=== PATIENT | male | born 1950 | race African-American/Black ===

== ENCOUNTER 2017-12-16 13:24 | Emergency (ER) | payer MEDICARE ==
[2017-12-16 15:04] VITALS: BP 185/130
--- NOTE | 2017-12-16 15:52 | UC ---
Skin Complaint HPI - HPI Summary HPI Summary: Patient removed a tick from his right lower abdomen last night. States that today he has developed a large area of redness around the area. He reports he was digging at it quite a bit trying to get a retained piece of tick out of his skin. Thinks there still might be a small bit remaining. No fever, headache, body aches. Unsure how long tick was attached. Patient was found to be profoundly hypertensive while in the UC. States he does not take any blood pressure medications as they did not work in the past. No PCP presently. Denies chest pain, shortness of breath, headache, visual disturbances. States his blood pressure usually runs in the 200s systolic. - History of Current Complaint Chief Complaint: UCGeneralIllness Time Seen by Provider: 12/16/17 15:08 Stated Complaint: TICK BITE Onset/Duration: Gradual Onset, Lasting Days, Still Present Timing: Constant Onset Severity: Mild Current Severity: Mild Pain Intensity: 0 Pain Scale Used: 0-10 Numeric Location: Discrete - RIGHT LOWER ABDOMEN Character: Redness Aggravating Factor(s): Nothing Alleviating Factor(s): Nothing Associated Signs & Symptoms: Positive: Rash - Allergy/Home Medications Allergies/Adverse Reactions: Allergies Allergy/AdvReac Type Severity Reaction Status Date / Time No Known Allergies Allergy Verified 12/16/17 14:06 Review of Systems Constitutional: Negative Skin: Rash Respiratory: Negative Cardiovascular: Negative Gastrointestinal: Negative Neurological: Negative All Other Systems Reviewed And Are Negative: Yes PMH/Surg Hx/FS Hx/Imm Hx Cardiovascular History: Hypertension - Surgical History Surgical History: None - Family History Known Family History: Positive: Hypertension - Social History Alcohol Use: Occasionally Substance Use Type: Marijuana Substance Use Comment - Amount & Last Used: "5-6 joints a day" Smoking Status (MU): Former Smoker Physical Exam Triage Information Reviewed: Yes Appearance: Well-Appearing, No Pain Distress, Well-Nourished Vital Signs: Initial Vital Signs Temp 99.1 F 12/16/17 14:06 Pulse 59 12/16/17 14:06 Resp 18 12/16/17 14:06 BP 0/0 12/16/17 14:06 Pulse Ox 98 12/16/17 14:06 Vital Signs Reviewed: Yes Eyes: Positive: Conjunctiva Clear ENT: Positive: Hearing grossly normal Neck: Positive: Supple Respiratory Exam: Normal Cardiovascular Exam: Normal Abdomen Description: Positive: Soft Musculoskeletal: Positive: No Edema Neurological: Positive: Alert Psychological: Positive: Age Appropriate Behavior Skin: Positive: Other - 9CM X 5CM AREA OF ERYTHEMA SURROUNDING SCABBED OVER TICK BITE RIGHT LOWER ABDOMEN. PINPOINT SIZED RETAINED TICK PART IN CENTER OF SCAB Course/Dx - Course Course Of Treatment: PT OFFERED TRANSPORT TO THE ED BY AMBULANCE FOR FURTHER EVAL AND TX OF HIS BP BUT DECLINES. ADVISED THAT BY NOT TRAVELING IN A MONITORED SETTING HE COULD BE RISKING WORSENING OF HIS CONDITION THAT COULD POSE A THREAT TO HIS LIFE, HEALTH AND MEDICAL SAFETY. HE VERBALIZES UNDERSTANDING AND CONTINUES TO DECLINE AMBULANCE TRANSFER. - Diagnoses Provider Diagnoses: 1. TICK BITE/CELLULITIS. 2. HYPERTENSIVE CRISIS Discharge - Sign-Out/Discharge Documenting (check all that apply): Patient Departure All imaging exams completed and their final reports reviewed: No Studies - Discharge Plan Condition: Stable Disposition: TRANS HIGHER LVL OF CARE FAC Prescriptions: Doxycycline Monohydrate 1 cap PO BID #[id number] Patient Education Materials: Cellulitis (ED), Tick Bite (ED), Hypertensive Crisis (ED) Referrals: No Primary Care Phys,NOPCP [Primary Care Provider] - Additional Instructions: THERE IS NO INDICATION TO REMOVE THE SMALL PIECE OF RETAINED TICK IN YOUR SKIN. YOUR BODY WILL PUSH THIS OUT ON ITS OWN THE WOUND HEALS. YOU APPEAR TO HAVE DEVELOPED A CELLULITIC INFECTION OF THE SKIN SURROUNDING THE TICK BITE. WE 'LL TREAT WITH DOXYCYCLINE TWICE DAILY FOR 2 WEEKS. THIS WILL ALSO COVER FOR LYME DISEASE. YOUR BP TODAY IS DANGEROUSLY ELEVATED (185/130). GO DIRECTLY TO THE [facility] ED FROM HERE FOR FURTHER EVALUATION. YOU HAVE DECLINED TRANSFER TO THE ED BY AMBULANCE. BE ADVISED THAT BY NOT TRAVELING IN A MONITORED SETTING YOU COULD BE RISKING WORSENING OF YOUR CONDITION THAT COULD POSE A THREAT TO YOUR LIFE, HEALTH AND MEDICAL SAFETY. CALL THE NUMBER BELOW FOR ASSISTANCE IN ESTABLISHING WITH A PCP An additional resource available to assist in finding the appropriate physician for your health care needs is [facility] ([facility]). You may contact them by calling [phone]. - Billing Disposition and Condition Condition: STABLE Disposition: Trans Higher Lvl of Care Fac
== END 2017-12-16 15:55 | disposition short-term general hospital (02) ==
LOC: UCEAST 13:24
DX: S30.861A Insect bite (nonvenomous) of abdominal wall, initial encounter (principal); L03.311 Cellulitis of abdominal wall; W57.XXXA Bitten or stung by nonvenomous insect and other nonvenomous arthropods, initial encounter; Y92.9 Unspecified place or not applicable; I16.9 Hypertensive crisis, unspecified; Z87.891 Personal history of nicotine dependence
CPT/HCPCS: 99212; G0463

== ENCOUNTER 2022-04-15 10:50 | Inpatient (IN) ==
[2022-04-15 11:24] LABS: ABS Basophils 0.1 10^3/ul (0-0.2); ABS Eosinophils 0.2 10^3/ul (0-0.6); ABS Lymphocytes 2.6 10^3/ul (1.0-4.8); ABS Monocytes 0.7 10^3/ul (0-0.8); ABS Neutrophils 6.6 10^3/ul (1.5-7.7); Eosinophil % 1.5 %; Hematocrit 47 % (42-52); Hemoglobin 16.1 g/dL (14.0-18.0); Lymphocyte % 26.1 %; Mean Corpuscular HGB Conc 34 g/dL (31-36); Mean Corpuscular Hemoglobin 31 pg (27-31); Mean Corpuscular Volume 90 fL (80-94); Mean Platelet Volume 9.4 fL (7.4-10.4); Nucleated Red Blood Cells % 0.1; Platelet Count 158 10^3/uL (150-450); Red Blood Count 5.23 10^6 /uL (4.18-5.48); Red Cell Distribution Width 14 % (10-15); White Blood Count 10.1 10^3/uL (3.5-10.8)
[2022-04-15 11:36] LABS: INR 1.15 (0.88-1.18)
[2022-04-15 12:04] LABS: Albumin 4.6 g/dL (3.2-5.2); Albumin/Globulin Ratio 1.6 (1-3); Calcium 9.4 mg/dL (8.6-10.3); Creatinine, Serum 1.2 mg/dL (0.67-1.17); Globulin 2.9 g/dL (2-4); Potassium 3.4 mmol/L (3.5-5.0); Total Bilirubin 1.1 mg/dL (0.2-1.0); Total Protein 7.5 g/dL (6.4-8.9); eGFR CKD-EPI 63.9 (>60)
[2022-04-15] MEDS ORDERED: hydrALAZINE 20 mg/ml 1 ML Vial IV IV SLOW PU ONE (12:59)
[2022-04-15 13:05] LABS: High Sensitivity Troponin 1 Hr 31 pg/mL (<20)
[2022-04-15] MEDS ORDERED: niCARdipine 0.1MG/ML IVPREMIX 20 MG/200 ML BAG IV SCH (14:00)
[2022-04-15] MEDS ORDERED: Potassium Chlor 20 meq TAB.ER PO ONE (14:51)
[2022-04-15 16:12] LABS: Urine Appearance Cloudy; Urine Bilirubin Negative (Negative); Urine Blood Negative (Negative); Urine Color Yellow; Urine Glucose Negative (Negative); Urine Ketones Negative (Negative); Urine Nitrite Negative (Negative); Urine Protein 1+(30 mg/dL) (Negative); Urine Specific Gravity 1.013 (1.002-1.030); Urine Urobilinogen Negative (Negative)
[2022-04-15 16:30] LABS: Urine Bacteria Absent (Absent); Urine Red Blood Cell Trace(0-2/hpf) (Absent); Urine Squamous Epithelial Cell Present (Absent); Urine White Blood Cell 2+(11-20/hpf) (Absent)
[2022-04-16 13:46] LABS: Calcium 9.3 mg/dL (8.6-10.3); Creatinine, Serum 1.03 mg/dL (0.67-1.17); Potassium 3.8 mmol/L (3.5-5.0); eGFR CKD-EPI 76.7 (>60)
[2022-04-17 03:55] LABS: ABS Basophils 0.1 10^3/ul (0-0.2); ABS Eosinophils 0.2 10^3/ul (0-0.6); ABS Lymphocytes 2.8 10^3/ul (1.0-4.8); ABS Monocytes 0.7 10^3/ul (0-0.8); ABS Neutrophils 6.7 10^3/ul (1.5-7.7); Eosinophil % 1.9 %; Hematocrit 43 % (42-52); Hemoglobin 14.7 g/dL (14.0-18.0); Lymphocyte % 26.5 %; Mean Corpuscular HGB Conc 35 g/dL (31-36); Mean Corpuscular Hemoglobin 31 pg (27-31); Mean Corpuscular Volume 90 fL (80-94); Mean Platelet Volume 9.4 fL (7.4-10.4); Nucleated Red Blood Cells % 0.1; Platelet Count 149 10^3/uL (150-450); Red Blood Count 4.73 10^6 /uL (4.18-5.48); Red Cell Distribution Width 13 % (10-15); White Blood Count 10.4 10^3/uL (3.5-10.8)
[2022-04-17 04:12] LABS: Calcium 8.7 mg/dL (8.6-10.3); Creatinine, Serum 1.11 mg/dL (0.67-1.17); Magnesium 1.9 mg/dL (1.9-2.7); Potassium 3.6 mmol/L (3.5-5.0); eGFR CKD-EPI 70.1 (>60)
[2022-04-17] MEDS ORDERED: Magnesium Sulfate IV 1GM/100ML 1 GM/100 ML BAG IV ONE (06:01)
[2022-04-17] MEDS ORDERED: Potassium Chlor 20 meq TAB.ER PO ONE (06:01)
[2022-04-17 21:00] LABS: Magnesium 2.1 mg/dL (1.9-2.7); Potassium 3.9 mmol/L (3.5-5.0)
[2022-04-17] MEDS ORDERED: Potassium Chlor 10 meq TAB PO ONE (21:24)
[2022-04-18 06:33] LABS: Calcium 8.6 mg/dL (8.6-10.3); Creatinine, Serum 0.97 mg/dL (0.67-1.17); HDL Cholesterol 35.2 mg/dL; eGFR CKD-EPI 82.4 (>60)
[2022-04-18] MEDS ORDERED: Polyethylene Glycol 3350 17 GM PACKET PO PRN (14:02)
[2022-04-18 15:57] LABS: Activated Partial Thrombo Time 22.6 seconds (26.0-38.0); INR 1.2 (0.88-1.18)
[2022-04-18 16:27] LABS: Creatinine, Serum 1.01 mg/dL (0.67-1.17); eGFR CKD-EPI 78.5 (>60)
[2022-04-18] MEDS: hydrALAZINE 20 mg/ml 1 ML Vial IV IV SLOW PU PRN (18:56)
[2022-04-18] MEDS ORDERED: Heparin 5000 UNITS/ML 1 mL VIAL SUBCUT SCH (21:00)
[2022-04-19] MEDS: hydrALAZINE 20 mg/ml 1 ML Vial IV IV SLOW PU PRN (00:35)
[2022-04-19 04:53] LABS: ABS Eosinophils 0.3 10^3/ul (0-0.6); ABS Lymphocytes 2.8 10^3/ul (1.0-4.8); ABS Monocytes 0.8 10^3/ul (0-0.8); ABS Neutrophils 4.9 10^3/ul (1.5-7.7); Eosinophil % 3.1 %; Hematocrit 41 % (42-52); Hemoglobin 14.2 g/dL (14.0-18.0); Lymphocyte % 31.5 %; Mean Corpuscular HGB Conc 35 g/dL (31-36); Mean Corpuscular Hemoglobin 31 pg (27-31); Mean Corpuscular Volume 89 fL (80-94); Nucleated Red Blood Cells % 0.1; Platelet Count 153 10^3/uL (150-450); Red Blood Count 4.56 10^6 /uL (4.18-5.48); Red Cell Distribution Width 13 % (10-15); White Blood Count 8.8 10^3/uL (3.5-10.8)
[2022-04-19 05:42] LABS: Calcium 8.6 mg/dL (8.6-10.3); Potassium 3.8 mmol/L (3.5-5.0); eGFR CKD-EPI 79.5 (>60)
[2022-04-19 05:57] LABS: TSH Ultra Thyroid Stim Horm 5.61 mcIU/mL (0.34-5.60)
[2022-04-19] MEDS: Enoxaparin 40 MG/0.4 ML SYR SUBCUT SCH (08:25)
[2022-04-19] MEDS ORDERED: Influenza vaccine *QUAD* *2022-23* 0.5 ML SYRINGE IM ONE (09:00)
[2022-04-19] MEDS ORDERED: Pneumococcal Vac 23-Polyvalent IM ONE (09:00)
[2022-04-19] MEDS: Aspirin EC 81 mg TAB.EC (enteric coated) PO SCH (09:13)
[2022-04-19] MEDS ORDERED: hydrALAZINE 20 mg/ml 1 ML Vial IV IV SLOW PU ONE (11:12)
[2022-04-19] MEDS ORDERED: hydrALAZINE 20 mg/ml 1 ML Vial IV ONE (11:14)
[2022-04-19] MEDS ORDERED: Ondansetron 4 mg VIAL 2 MG/ML 2 ml VIAL ONE (12:44)
[2022-04-19] MEDS ORDERED: Regadenoson 0.4 MG/5 ML SYRINGE ONE (12:44)
[2022-04-19] MEDS ORDERED: Flumazenil 0.5 mg/5 ml 0.1 MG/ML 5 ml VIAL ONE (14:51)
[2022-04-19] MEDS ORDERED: Naloxone 0.4 mg VIAL 0.4 mg/ml 1 ml VIAL ONE (14:51)
[2022-04-19] MEDS ORDERED: Midazolam 5 mg/5 ml VIAL 1 mg/ml 5 ml VIAL (5 mg) ONE (14:51)
[2022-04-19] MEDS ORDERED: fentaNYL 100 mcg/2 ml 50 MCG/ML VIAL ONE (14:51)
[2022-04-19] MEDS ORDERED: fentaNYL 100 mcg/2 ml 50 MCG/ML VIAL IV SLOW PU ONE (15:17)
[2022-04-19] MEDS ORDERED: Midazolam 10 mg/10 ml VIAL 1 mg/ml 10 ml VIAL (10 mg) IV SLOW PU ONE (15:17)
[2022-04-19] MEDS: NS 0.9% 1000 ml BAG 1,000 ML IV ONE (16:33)
[2022-04-20] MEDS: NS 0.9% 1000 ml BAG 1,000 ML IV ONE (00:32)
[2022-04-20 04:43] LABS: ABS Eosinophils 0.2 10^3/ul (0-0.6); ABS Lymphocytes 2.4 10^3/ul (1.0-4.8); ABS Monocytes 0.6 10^3/ul (0-0.8); ABS Neutrophils 4.2 10^3/ul (1.5-7.7); Eosinophil % 3.2 %; Hematocrit 43 % (42-52); Hemoglobin 14.7 g/dL (14.0-18.0); Lymphocyte % 31.6 %; Mean Corpuscular HGB Conc 34 g/dL (31-36); Mean Corpuscular Hemoglobin 31 pg (27-31); Mean Corpuscular Volume 91 fL (80-94); Platelet Count 162 10^3/uL (150-450); Red Blood Count 4.68 10^6 /uL (4.18-5.48); Red Cell Distribution Width 13 % (10-15); White Blood Count 7.4 10^3/uL (3.5-10.8)
[2022-04-20 05:15] LABS: Calcium 8.7 mg/dL (8.6-10.3); Creatinine, Serum 1.04 mg/dL (0.67-1.17); Magnesium 1.8 mg/dL (1.9-2.7); eGFR CKD-EPI 75.8 (>60)
[2022-04-20] MEDS ORDERED: Magnesium Sulfate 2 gm BAG 2 GM/50 ML BAG IVPB ONE (05:59)
[2022-04-20] MEDS ORDERED: Pneumococcal Vac 23-Polyvalent SUBCUT ONE (09:00)
[2022-04-20] MEDS ORDERED: Influenza vaccine *QUAD* *2022-23* 0.5 ML SYRINGE IM ONE (09:00)
[2022-04-20] MEDS: Aspirin EC 81 mg TAB.EC (enteric coated) PO SCH (09:02)
[2022-04-20] MEDS: Enoxaparin 40 MG/0.4 ML SYR SUBCUT SCH (09:05)
[2022-04-20] MEDS ORDERED: hydrALAZINE 20 mg/ml 1 ML Vial IV ONE (14:15)
[2022-04-20] MEDS: hydrALAZINE 20 mg/ml 1 ML Vial IV IV SLOW PU PRN (14:17)
[2022-04-20] MEDS ORDERED: hydrALAZINE 20 mg/ml 1 ML Vial IV IV SLOW PU ONE (14:33)
[2022-04-21 04:59] LABS: ABS Eosinophils 0.3 10^3/ul (0-0.6); ABS Lymphocytes 2.4 10^3/ul (1.0-4.8); ABS Monocytes 0.7 10^3/ul (0-0.8); ABS Neutrophils 4.6 10^3/ul (1.5-7.7); Eosinophil % 3.3 %; Hematocrit 42 % (42-52); Hemoglobin 14.1 g/dL (14.0-18.0); Lymphocyte % 29.9 %; Mean Corpuscular HGB Conc 34 g/dL (31-36); Mean Corpuscular Hemoglobin 32 pg (27-31); Mean Corpuscular Volume 93 fL (80-94); Mean Platelet Volume 8.8 fL (7.4-10.4); Nucleated Red Blood Cells % 0.1; Platelet Count 147 10^3/uL (150-450); Red Blood Count 4.49 10^6 /uL (4.18-5.48); Red Cell Distribution Width 13 % (10-15)
[2022-04-21 05:47] LABS: Albumin 3.7 g/dL (3.2-5.2); Calcium 8.7 mg/dL (8.6-10.3); Magnesium 1.9 mg/dL (1.9-2.7); Potassium 4.2 mmol/L (3.5-5.0); Total Bilirubin 0.7 mg/dL (0.2-1.0)
[2022-04-21 05:53] LABS: Albumin/Globulin Ratio 1.6 (1-3); Globulin 2.3 g/dL (2-4)
[2022-04-21 07:49] LABS: Creatinine, Serum 1.05 mg/dL (0.67-1.17)
[2022-04-21] MEDS: Aspirin EC 81 mg TAB.EC (enteric coated) PO SCH (08:35)
[2022-04-21] MEDS: Enoxaparin 40 MG/0.4 ML SYR SUBCUT SCH (11:18)
[2022-04-21 14:15] VITALS: BP 176/92
[2022-04-21 19:01] LABS: Renin 2.3 ng/mL/h
== END 2022-04-21 17:45 | disposition home or self-care (01) | DRG 77 ==
LOC: ED 10:50 → EDHOLD 15:15 → ICU 04-16 07:35
PROVIDERS: ADMIT Internal Medicine Critical Care Medicine; ATTEND Internal Medicine Critical Care Medicine

== ENCOUNTER 2022-09-16 06:51 | Observation (INO) ==
[2022-09-16] MEDS ORDERED: ceFAZolin 2 GM in NS PREMIX 2 GM/100 ML BAG IVPB ONE ×2 (07:00→08:00)
[2022-09-16 08:01] LABS: Blood Urea Nitrogen 22 mg/dL (6-24); CO2 Carbon Dioxide 25 mmol/L (22-32); Calcium 8.9 mg/dL (8.6-10.3); Chloride 104 mmol/L (101-111); Creatinine, Serum 1.11 mg/dL (0.67-1.17); Glucose 104 mg/dL (70-100); Sodium 138 mmol/L (135-145); eGFR CKD-EPI 70.1 (>60)
[2022-09-16 08:03] LABS: ABS Basophils 0.1 10^3/uL (0.0-0.1); ABS Eosinophils 0.4 10^3/uL (0.0-0.5); ABS Lymphocytes 2.5 10^3/uL (1.0-4.8); ABS Monocytes 0.6 10^3/uL (0.0-1.1); ABS Neutrophils 5.2 10^3/uL (1.5-7.6); ABS Nucleated RBC 0.01 10^3/ul; Hematocrit 38.4 % (38-53); Hemoglobin 13.6 g/dL (13.2-16.3); Mean Corpuscular Hemoglobin 32.9 pg (27-33); Mean Corpuscular Hgb Conc 35.5 g/dL (31-36); Mean Corpuscular Volume 92.6 fL (80-97); Mean Platelet Volume 9.5 fL (7.5-11.2); Nucleated Red Blood Cells % 0.1 /100 WBC (0.0-0.4); Platelet Count 182 10^3/uL (150-450); Red Blood Count 4.15 10^6/uL (4.06-5.63); Red Cell Distribution Width 13.6 % (12-17); White Blood Count 8.8 10^3/uL (3.6-10.2)
[2022-09-16 08:06] LABS: Anion Gap 9 mmol/L (2-16)
[2022-09-16] MEDS ORDERED: Iohexol 300 (CONTRAST) 10 ML SDV ONE (08:08)
[2022-09-16] MEDS ORDERED: fentaNYL 100 mcg/2 ml 50 MCG/ML VIAL ONE (08:08)
[2022-09-16] MEDS ORDERED: Lidocaine 1% VIAL 10 MG/ML VIAL 30 ML ONE (08:08)
[2022-09-16] MEDS ORDERED: Midazolam 5 mg/5 ml VIAL 1 mg/ml 5 ml VIAL (5 mg) ONE (08:08)
[2022-09-16] MEDS ORDERED: Midazolam 10 mg/10 ml VIAL 1 mg/ml 10 ml VIAL (10 mg) IV SLOW PU ONE (08:38)
[2022-09-16] MEDS ORDERED: fentaNYL 100 mcg/2 ml 50 MCG/ML VIAL IV SLOW PU ONE (08:38)
[2022-09-16] MEDS: NS 0.9% 1000 ml BAG 1,000 ML IV SCH ×2 (10:15→17:37)
[2022-09-16] MEDS ORDERED: ceFAZolin VIAL 1 GM in NS 0.9% 50 ML 50 ML IVPB SCH (16:30)
[2022-09-16] MEDS: ceFAZolin VIAL 1 GM in NS 0.9% 50 ML 50 ML IVPB SCH (16:59)
[2022-09-17] MEDS: ceFAZolin VIAL 1 GM in NS 0.9% 50 ML 50 ML IVPB SCH ×2 (00:43→09:45)
[2022-09-17 05:59] LABS: Hematocrit 36.6 % (38-53); Mean Corpuscular Hemoglobin 32.8 pg (27-33); Mean Corpuscular Hgb Conc 35.6 g/dL (31-36); Mean Corpuscular Volume 92.4 fL (80-97); Platelet Count 140 10^3/uL (150-450); Red Blood Count 3.96 10^6/uL (4.06-5.63); Red Cell Distribution Width 13.4 % (12-17); White Blood Count 9.5 10^3/uL (3.6-10.2)
[2022-09-17] MEDS ORDERED: Aspirin EC 81 mg TAB.EC (enteric coated) PO SCH (09:00)
[2022-09-17 09:49] VITALS: BP 182/108
== END 2022-09-17 13:07 | disposition home or self-care (01) ==
LOC: CHICATH 06:51 → MEDTELE 06:51
PROVIDERS: ADMIT Specialist; ATTEND Specialist

== ENCOUNTER 2023-04-04 07:58 | Inpatient (IN) ==
[2023-04-04 09:13] LABS: ABS Eosinophils 0.3 10^3/uL (0.0-0.5); ABS Monocytes 0.6 10^3/uL (0.0-1.1); ABS Neutrophils 4.6 10^3/uL (1.5-7.6); ABS Nucleated RBC 0.01 10^3/ul; Eosinophil % 4.2 %; Hematocrit 37.1 % (38-53); Hemoglobin 13.1 g/dL (13.2-16.3); Lymphocyte % 25.7 %; Mean Corpuscular Hemoglobin 31.7 pg (27-33); Mean Corpuscular Hgb Conc 35.3 g/dL (31-36); Mean Corpuscular Volume 89.8 fL (80-97); Mean Platelet Volume 8.5 fL (7.5-11.2); Nucleated Red Blood Cells % 0.1 %/100WBC (0.0-0.8); Platelet Count 157 10^3/uL (150-450); Red Blood Count 4.13 10^6/uL (4.06-5.63); Red Cell Distribution Width 13.1 % (12-17); White Blood Count 7.6 10^3/uL (3.6-10.2)
[2023-04-04 09:19] LABS: Activated Partial Thrombo Time 28.3 seconds (26.0-38.0); INR 1.09 (0.83-1.13)
[2023-04-04] MEDS ORDERED: fentaNYL 100 mcg/2 ml 50 MCG/ML VIAL ONE ×2 (09:21→10:58)
[2023-04-04] MEDS ORDERED: Heparin 1,000 UNIT/ML 10 ml (10,000 UNITS) CATHLAB/DIALYSIS ONE ×2 (09:21→10:55)
[2023-04-04] MEDS ORDERED: Midazolam 5 mg/5 ml VIAL 1 mg/ml 5 ml VIAL (5 mg) ONE (09:21)
[2023-04-04] MEDS ORDERED: Heparin 2 UNITS/ML 1000 mls 2,000 ML IV ONE (09:22)
[2023-04-04] MEDS ORDERED: nitroGLYCERIN DRIP 25,000 MCG/250 ML BTL ONE (09:22)
[2023-04-04] MEDS ORDERED: Lidocaine 1% MPF 5 ML VIAL ONE (09:22)
[2023-04-04] MEDS ORDERED: Iohexol 350 (CONTRAST) 200 ML MDV IV ONE ×2 (09:22→10:51)
[2023-04-04] MEDS ORDERED: niCARdipine 0.1MG/ML IVPREMIX 20 MG/200 ML BAG IV ONE (09:23)
[2023-04-04] MEDS ORDERED: Flumazenil 0.5 mg/5 ml 0.1 MG/ML 5 ml VIAL IV PRN (09:27)
[2023-04-04] MEDS ORDERED: Naloxone 0.4 mg VIAL 0.4 mg/ml 1 ml VIAL IV PUSH PRN (09:27)
[2023-04-04 09:29] LABS: Calcium 9.5 mg/dL (8.6-10.3); Creatinine, Serum 1.04 mg/dL (0.67-1.17); Potassium 3.5 mmol/L (3.5-5.0); eGFR CKD-EPI 75.3 (>60)
[2023-04-04] MEDS ORDERED: methylPREDNISolone SOD SUCC 125 mg 2 ML VIAL ONE (09:29)
[2023-04-04] MEDS: methylPREDNISolone SOD SUCC 125 mg 2 ML VIAL IV ONE ×2 (09:43→09:44)
[2023-04-04] MEDS: Midazolam 10 mg/10 ml VIAL 1 mg/ml 10 ml VIAL (10 mg) IV SLOW PU ONE (09:44)
[2023-04-04] MEDS: fentaNYL 100 mcg/2 ml 50 MCG/ML VIAL IV SLOW PU ONE (09:44)
[2023-04-04] MEDS ORDERED: Heparin 2 UNITS/ML 1000 mls 1,000 ML IV ONE (10:28)
[2023-04-04] MEDS ORDERED: ADENOSINE (DIAGNOSTIC) 3 MG/ML VIAL 90MG/30 ML IVPB ONE ×2 (10:33→10:40)
[2023-04-04] MEDS ORDERED: Ondansetron 4 mg VIAL 2 MG/ML 2 ml VIAL IV PRN (11:36)
[2023-04-04] MEDS ORDERED: oxyCODONE/Acetamin 5/325 mg TAB PO PRN (11:36)
[2023-04-05 04:33] LABS: Creatinine, Serum 1.04 mg/dL (0.67-1.17); HDL Cholesterol 47.2 mg/dL; Potassium 4.4 mmol/L (3.5-5.0); eGFR CKD-EPI 75.3 (>60)
[2023-04-05 07:02] VITALS: BP 142/93
== END 2023-04-05 09:50 | disposition home or self-care (01) | DRG 322 ==
LOC: CHICATH 07:58 → ICU 12:02
PROVIDERS: ADMIT Internal Medicine; ATTEND Internal Medicine